=== PATIENT | female | born 1960 | race Caucasian/White ===

== ENCOUNTER → 2019-06-04 | Day surgery (SDC) | payer BC ==
[~2019-06-04] MED LIST: Dextrose 5%-0.45% NaCl 1,000 ML IV SCH; Midazolam 1 MG/ML 2 ML SDV IV ONE; Midazolam 1 MG/ML 2 ML SDV ONE; fentaNYL 100 MCG/2 ML SDV IV ONE; fentaNYL 100 MCG/2 ML SDV ONE
--- NOTE | 2019-06-04 14:23 | OR ---
DATE: 06/04/2019 PREOPERATIVE DIAGNOSIS: Family history of colon cancer and personal screening. POSTOPERATIVE DIAGNOSIS: Family history of colon cancer and personal screening. PROCEDURE: Total colonoscopy. ANESTHESIA: Conscious sedation with IV Versed and fentanyl. SPECIMEN: None. OPERATIVE FINDINGS: Normal colonoscopy. RECOMMENDATION: Followup colonoscopy in 10 years for screening polyps and earlier for symptoms. PROCEDURE IN DETAIL: After adequate preparation, a colonoscope was inserted into the rectum. This was easily passed all the way to the cecum. Confirmation of the cecum was made by visualization of the ileocecal valve, palpation in the right lower quadrant, and a light shining through the right lower quadrant. The bowel prep was very good. On withdrawal of the scope, a good examination of the colon was accomplished. There were no masses, polyps, bleeding sites, diverticula, or evidence of colitis. Anal and rectal examination was also normal. Air was suctioned from the colon, and the scope removed. [facility] /[id number]
== END ==
LOC: DL.ENDO 07:35
PROVIDERS: ATTEND Surgery
DX: Z12.11 Encounter for screening for malignant neoplasm of colon (principal); Z80.0 Family history of malignant neoplasm of digestive organs
CPT/HCPCS: 45378; J2250; J3010; J7042; G0121

== ENCOUNTER 2021-01-15 09:50 | Emergency (ER) | payer BC ==
[2021-01-15] MEDS ORDERED: Clindamycin HCl 150 MG Cap PO ONE (10:50)
[2021-01-15] MEDS ORDERED: Lidocaine 2% Viscous Solution 15 ML Cup PO ONE (10:50)
--- NOTE | 2021-01-15 11:00 | EDM.PDOC ---
ED HPI GENERAL MEDICAL PROBLEM - General Chief Complaint: ENT Problem Stated Complaint: RIGHT SIDE JAW PAIN Time Seen by Provider: 01/15/21 10:45 Source of Information: Reports: Patient History Limitations: Reports: No Limitations - History of Present Illness INITIAL COMMENTS - FREE TEXT/NARRATIVE: This 60 yo female patient reports to the ED due to right lower jaw pain. The pat brianna reports she had a filling replaced last Saturday and has been experiencing increased pain since that time. The patient has been taking Oxycodone and Tramadol (prescribed for her arthritis), but continues to experience pain. Onset: Unknown/Unsure Duration: Constant, Getting Worse Location: Reports: Face Quality: Reports: Ache, Sharp, Stabbing Severity: Severe Improves with: Reports: None Worsens with: Reports: None Context: Reports: Other Treatments HAIR SPRING WINDER: Reports: Acetaminophen, Other Medication(s) Right Oral/Mouth Pain Score (Numeric/FACES): 10 - Related Data Allergies Allergy/AdvReac Type Severity Reaction Status Date / Time No Known Allergies Allergy Verified 01/15/21 10:14 Home Meds: Home Meds hydroCHLOROthiazide [Hydrochlorothiazide] 25 mg PO DAILY 06/03/19 [History] lisinopriL [Lisinopril] 5 mg PO DAILY 06/03/19 [History] oxyCODONE HCl/Acetaminophen [Oxycodone-Acetaminophen 5-325] 1 - 2 tab PO Q4HR PRN 06/03/19 [History] traMADol [Ultram] 50 mg PO Q6H PRN 06/03/19 [History] Past Medical History HEENT History: Reports: None Cardiovascular History: Reports: Hypertension Respiratory History: Reports: None Gastrointestinal History: Reports: None Genitourinary History: Reports: None 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 Musculoskeletal History: Reports: Arthritis Neurological History: Reports: None Psychiatric History: Reports: None Endocrine/Metabolic History: Reports: None Hematologic History: Reports: None Immunologic History: Reports: None Oncologic (Cancer) History: Reports: None Dermatologic History: Reports: None - Infectious Disease History Infectious Disease History: Reports: None - Past Surgical History HEENT Surgical History: Reports: Tonsillectomy Cardiovascular Surgical History: Reports: None Respiratory Surgical History: Reports: None GI Surgical History: Reports: None Female Surgical History: Reports: None Endocrine Surgical History: Reports: None Neurological Surgical History: Reports: None Musculoskeletal Surgical History: Reports: Hip Replacement, Other (See Below) Other Musculoskeletal Surgeries/Procedures:: LEFT HIP TOTAL REPLACEMENT Oncologic Surgical History: Reports: None Social & Family History - Family History Family Medical History: No Pertinent Family History GI: Reports: Other (See Below) Other GI Family History: COLON CANCER - BROTHER AND FATHER - Tobacco Use Tobacco Use Status *Q: Current Every Day Tobacco User Years of Tobacco use: 43 Packs/Tins Daily: 1 - Caffeine Use Caffeine Use: Reports: Coffee, Soda - Recreational Drug Use Recreational Drug Use: No ED ROS ENT - Review of Systems Review Of Systems: Comprehensive ROS is negative, except as noted in HPI. ED EXAM, ENT - Physical Exam Exam: See Below Exam Limited By: No Limitations General Appearance: Alert, WD/WN, No Apparent Distress Eye Exam: Bilateral Eye: EOMI, Normal Inspection, PERRL Ears: Normal External Exam, Normal Canal, Hearing Grossly Normal, Normal TMs Nose: Normal Inspection, Normal Mucousa, No Blood Mouth/Throat: Dental Pain, Dental Tenderness (right lower) Head: Atraumatic, Normocephalic Neck: Normal Inspection, Supple, Non-Tender, Full Range of Motion Respiratory/Chest: No Respiratory Distress, Lungs Clear, Normal Breath Sounds, No Accessory Muscle Use, Chest Non-Tender Cardiovascular: Normal Peripheral Pulses, Regular Rate, Rhythm, No Edema, No Gallop, No JVD, No Murmur, No Rub GI/Abdominal: Normal Bowel Sounds, Soft, Non-Tender, No Organomegaly, No Distention, No Abnormal Bruit, No Mass (Female) Exam: Deferred Rectal (Female) Exam: Deferred Back: Normal Inspection, Full Range of Motion Extremities: Normal Inspection, Normal Range of Motion, Non-Tender, No Pedal Edema, Normal Capillary Refill Psychiatric: Normal Affect, Normal Mood Skin: Warm, Dry, Intact, Normal Color, No Rash Lymphatic: No Adenopathy Course - Vital Signs Last Recorded V/S: Last Vital Signs Temp 36.9 C 01/15/21 10:09 Pulse 84 01/15/21 10:09 Resp 14 01/15/21 10:09 BP 130/68 01/15/21 10:09 Pulse Ox 98 01/15/21 10:09 - Orders/Labs/Meds Meds: Medications Discontinued Medications Generic Name Dose Route Start Last Admin Trade Name Freq PRN Reason Stop Dose Admin Clindamycin HCl 150 mg 01/15/21 10:50 Cleocin PO 01/15/21 10:51 ONETIME ONE Lidocaine HCl 15 ml 01/15/21 10:50 Xylocaine 2% Viscous PO 01/15/21 10:51 ONETIME ONE Departure - Departure Time of Disposition: 11:01 Disposition: Home, Self-Care 01 Condition: Fair Clinical Impression: Dental abscess - Discharge Information *PRESCRIPTION DRUG MONITORING PROGRAM REVIEWED*: Not Applicable *COPY OF PRESCRIPTION DRUG MONITORING REPORT IN PATIENT CONSTANTIN: Not Applicable Instructions: Dental Abscess, [id number] Care Plan Goals: The patient was advised of the examination results during the visit. The patient was given an oral dose of Clindamycin and some Viscous Lidocaine while in the ED. The patient was discharged with a script for Clindamycin (300 mg) #40 to take 1 by mouth 4 times per day and Viscous Lidocaine 2% #100 mL to apply 5 mL to a cottonball directly to the affected area every 6 hours as needed. The patient was encouraged to follow-up with her dentist for continued evaluation and management. If the patient has any additional symptoms or concerns, the patient should either return to the emergency department or visit her dentist. Sepsis Event Note (ED) - Evaluation Sepsis Screening Result: No Definite Risk - Focused Exam Vital Signs: Vital Signs Temp Pulse Resp BP Pulse Ox 01/15/21 10:09 36.9 C 84 14 130/68 98
== END 2021-01-15 11:16 | disposition home or self-care (01) ==
LOC: DL.ED 09:50
DX: K04.7 Periapical abscess without sinus (principal); I10 Essential (primary) hypertension; Z79.899 Other long term (current) drug therapy
CPT/HCPCS: 99283; A9270

== ENCOUNTER 2021-07-31 10:07 | Emergency (ER) | payer BC ==
[2021-07-31] MEDS ORDERED: Lidocaine 5% Oint 35.44 GM Tube TOP ONE (10:35)
--- NOTE | 2021-07-31 10:44 | EDM.PDOC ---
Scribed by Tabitha Aguilar 07/31/21 1041 for Bridger Bland MD ED HPI GENERAL MEDICAL PROBLEM - General Chief Complaint: Skin Complaint Stated Complaint: [id number] BIT BY WASP ON EAR ONE WEEK AGO Time Seen by Provider: 07/31/21 10:25 Source of Information: Reports: Patient, RN, RN Notes Reviewed History Limitations: Reports: No Limitations - History of Present Illness INITIAL COMMENTS - FREE TEXT/NARRATIVE: Patient presents to ED by POV with report of left ear pain that began approx 1 year ago. Patient states she was stung a by a wasp and has since developed pain. Small sore noted to the inside of the ear. No active drainage, swelling, redness. Patient states pain is now radiating to inside of ear. States she took prescribed tramadol and norco @ home. 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: Reports: Other (see below) (and Tramadol) - Related Data Allergies Allergy/AdvReac Type Severity Reaction Status Date / Time No Known Allergies Allergy Verified 07/31/21 10:15 Home Meds: Home Meds hydroCHLOROthiazide [Hydrochlorothiazide] 25 mg PO DAILY 06/03/19 [History] lisinopriL [Lisinopril] 5 mg PO DAILY 06/03/19 [History] oxyCODONE HCl/Acetaminophen [Oxycodone-Acetaminophen 5-325] 1 - 2 tab PO Q4HR PRN 06/03/19 [History] traMADol [Ultram] 50 mg PO Q6H PRN 06/03/19 [History] Escitalopram [Lexapro] 10 mg PO DAILY 07/31/21 [History] Past Medical History HEENT History: Reports: None Cardiovascular History: Reports: Hypertension Respiratory History: Reports: None Gastrointestinal History: Reports: None Genitourinary History: Reports: None 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 Musculoskeletal History: Reports: Arthritis Neurological History: Reports: None Psychiatric History: Reports: None Endocrine/Metabolic History: Reports: None Hematologic History: Reports: None Immunologic History: Reports: None Oncologic (Cancer) History: Reports: None Dermatologic History: Reports: None - Infectious Disease History Infectious Disease History: Reports: None - Past Surgical History HEENT Surgical History: Reports: Tonsillectomy Cardiovascular Surgical History: Reports: None Respiratory Surgical History: Reports: None GI Surgical History: Reports: None Female Surgical History: Reports: None Endocrine Surgical History: Reports: None Neurological Surgical History: Reports: None Musculoskeletal Surgical History: Reports: Hip Replacement, Other (See Below) Other Musculoskeletal Surgeries/Procedures:: LEFT HIP TOTAL REPLACEMENT Oncologic Surgical History: Reports: None Social & Family History - Family History Family Medical History: No Pertinent Family History GI: Reports: Other (See Below) Other GI Family History: COLON CANCER - BROTHER AND FATHER - Caffeine Use Caffeine Use: Reports: Coffee, Soda ED ROS GENERAL - Review of Systems Review Of Systems: Comprehensive ROS is negative, except as noted in HPI. ED EXAM, SKIN/RASH Exam: See Below Exam Limited By: No Limitations General Appearance: Alert, WD/WN, No Apparent Distress Eye Exam: Bilateral Eye: EOMI, Normal Inspection, PERRL Ears: Hearing Grossly Normal, Normal TMs, Other (Left external canal has an infected comodome with pustular head at the opening of the canal) Nose: Normal Inspection Throat/Mouth: Normal Voice, No Airway Compromise Head: Atraumatic, Normocephalic Neck: Normal Inspection, Supple, Non-Tender, Full Range of Motion Respiratory/Chest: No Respiratory Distress Cardiovascular: Regular Rate, Rhythm ED SKIN PROCEDURES - I&D Site: Left ear canal Local Anesthesia: Lidocaine: Other (None) Area Incised With: Needle Drainage: Purulent, Small Amount Probed to Break Up Loculations: No Packed With: None Sterile Dressing: None Complications: No Complication Description: Simple needle I&D Course - Vital Signs Last Recorded V/S: Last Vital Signs Temp 97.5 F 07/31/21 10:16 Pulse 97 07/31/21 10:16 Resp 18 07/31/21 10:16 BP 153/79 H 07/31/21 10:16 Pulse Ox 96 07/31/21 10:16 - Orders/Labs/Meds Meds: Medications Discontinued Medications Generic Name Dose Route Start Last Admin Trade Name Freq PRN Reason Stop Dose Admin Lidocaine HCl 30 gm 07/31/21 10:35 Lidocaine 5% Oint 35.44 Gm Tube TOP 07/31/21 10:36 ONETIME ONE Departure - Departure Time of Disposition: 10:42 Disposition: Home, Self-Care 01 Condition: Good Clinical Impression: Furuncle of ear canal - Discharge Information *PRESCRIPTION DRUG MONITORING PROGRAM REVIEWED*: Not Applicable *COPY OF PRESCRIPTION DRUG MONITORING REPORT IN PATIENT CONSTANTIN: Not Applicable Instructions: Skin Abscess, [id number] Forms: ED Department Discharge Additional Instructions: Bactroban Ointment 2% Apply small amount to area of left external ear infection three times a day for 5 days. Follow up in clinic this week if not improving as expected. Sepsis Event Note (ED) - Focused Exam Vital Signs: Vital Signs Temp Pulse Resp BP Pulse Ox 07/31/21 10:16 97.5 F 97 18 153/79 H 96 I have read and agree with the documentation that has been completed regarding this visit. By signing this record, I attest that the documentation was completed in my physical presence and is an accurate record of the encounter.
[2021-07-31] MEDS ORDERED: Mupirocin Oint 22 GM Tube ONE (10:49)
== END 2021-07-31 10:55 | disposition home or self-care (01) ==
LOC: DL.ED 10:07
DX: H60.02 Abscess of left external ear (principal); I10 Essential (primary) hypertension; Z79.899 Other long term (current) drug therapy
CPT/HCPCS: 10060; 99282; A9270